=== PATIENT | female | born 2000 | race Asian ===

== ENCOUNTER 2022-08-14 17:28 | Emergency (ER) | payer OTHER ==
[~2022-08-14] VITALS: Ht 167.6 cm; Wt 59.0 kg
[2022-08-14 18:00] VITALS: BP 103/64; TEMP 98.1
== END 2022-08-14 18:57 | disposition home or self-care (01) ==
LOC: ED 17:28
DX: L70.0 Acne vulgaris (principal)
CPT/HCPCS: 99283